=== PATIENT | male | born 1970 | race African-American/Black ===

== ENCOUNTER 2021-01-23 04:30 | Emergency (ER) | payer SELFPAY ==
[2021-01-23] MEDS ORDERED: Boostrix 0.5 ML (Tdap) VIAL ONE (04:45)
[2021-01-23] MEDS ORDERED: Lidocaine 1% PF 5 ML VIAL ONE (04:52)
== END 2021-01-23 05:20 | disposition home or self-care (01) ==
LOC: ERS 04:30
DX: S01.111A Laceration without foreign body of right eyelid and periocular area, initial encounter (principal); E11.9 Type 2 diabetes mellitus without complications; W06.XXXA Fall from bed, initial encounter
CPT/HCPCS: 12011; 36416; 90471; 90715

== ENCOUNTER 2023-04-16 03:25 | Inpatient (IN) | payer OTHER ==
[2023-04-16 04:06] LABS: #Eosinphils 0.1 thou/uL (0.0-0.7); #Monocytes 0.9 thou/uL (0.11-0.59); #Neutrophils 9.3 thou/uL (1.40-6.50); %Basophils 0.3 % (0.0-1.0); %Eosinophils 0.9 % (0.0-10.0); %Lymphocytes 7.9 % (21.0-51.0); %Monocytes 7.6 % (0.0-10.0); Hematocrit 37.2 % (42.0-52.0); Hemoglobin 12.7 g/dL (14.0-18.0); Mean Corpuscular HGB CONC 34.1 g/dL (32.0-36.0); Mean Corpuscular Hemoglobin 31.4 pg (27.0-31.0); Mean Corpuscular Volume 92.1 fl (78.0-98.0); Mean Platelet Volume 12.6 fL (7.4-10.4); Platelet Count 155 10x3/uL (130-400); RBC Distribution Width 12.8 % (11.5-14.5); Red Blood Cell (RBC) Count 4.04 mill/uL (4.70-6.10); White Blood Cell (WBC) Count 11.2 10x3/uL (4.8-10.8)
[2023-04-16] MEDS ORDERED: cefTRIAXone (ROCEPHIN) 1 GM VIAL ONE (04:22)
[2023-04-16 04:38] LABS: SARS-CoV-2 NAA Rapid Test Not Detected (NotDetected)
[2023-04-16 05:21] LABS: Anion Gap 13 mmol/L (10-20); BUN (Urea Nitrogen) 17 mg/dL (8.4-25.7); Calc. Creatinine Clearance 0 mL/min (70-130); Carbon Dioxide 23 mmol/L (22-29); Chloride 103 mmol/L (98-107); Estimated GFR 62; Potassium 4.2 mmol/L (3.5-5.1); Sodium 135 mmol/L (136-145)
[2023-04-16 05:22] LABS: ALT (SGPT) 20 U/L (8-55); AST (SGOT) 27 U/L (5-34); Albumin 3.7 g/dL (3.5-5.0); Alkaline Phosphatase 57 U/L (40-110); Bilirubin, Total 0.5 mg/dL (0.2-1.2); Globulin 3.8 g/dL (2.4-3.5); Glucose 189 mg/dL (70-105); Protein, Total 7.5 g/dL (6.0-8.3)
[2023-04-16] MEDS ORDERED: Vancomycin 1.5 GRAM/300 ML BAG 1.5 GM in Premix Bag 1 BAG IVPB SCH (06:15)
[2023-04-16 06:47] LABS: Bacteria/HPF None Seen HPF (None Seen); Bilirubin Negative (Negative); Blood, Urine Negative (Negative); CAUTI Indications for Culture Fever or rigors; Clarity Clear (Clear); Glucose, Urine (Dipstick) 100 mg/dL (Negative); Ketone, Urine Trace mg/dL (Negative); Leukocyte Negative Leu/uL (Negative); Nitrite Negative (Negative); Protein, Urine (Dipstick) Negative (Neg-Trace); RBC/HPF 0-3 HPF (0-3); Specific Gravity, Urine 1.015 (1.002-1.036); Sperm/HPF 3+ HPF (None Seen); Squamous Epithelial None Seen HPF (0-3); Urobilinogen Normal mg/dL (Less than 2); WBC/HPF 0-3 HPF (0-3); pH, Urine 5.5 (5.0-9.0)
[2023-04-16 06:48] LABS: Urine Culture Reflex No No
[2023-04-16 09:05] VITALS: BMI 23.1
[2023-04-16] MEDS ORDERED: Dextrose 5% in Water 1,000 ML IV PRN (09:30)
[2023-04-16] MEDS ORDERED: Sodium Chloride 0.9% 1,000 ML IV SCH (09:30)
[2023-04-16] MEDS ORDERED: Acetaminophen 650 MG Suppository PR PRN (09:30)
[2023-04-16] MEDS ORDERED: Acetaminophen 325 MG TAB PO PRN (09:30)
[2023-04-16] MEDS ORDERED: Ondansetron PF 4 MG/2 ML Vial IVP PRN (09:30)
[2023-04-16] MEDS ORDERED: HumaLOG 300 UNITS/3 ML VIAL SC PRN (09:30)
[2023-04-16] MEDS ORDERED: Electrolyte Replacement Protocol 1 EACH FS SCH (09:30)
[2023-04-16] MEDS ORDERED: Dextrose 50% Abboject 50 ML SYRINGE SLOW IVP PRN (09:30)
[2023-04-16] MEDS ORDERED: Glucagon 1 MG/ML KIT IM PRN (09:30)
[2023-04-16] MEDS ORDERED: Ondansetron ODT 4 MG TAB PO PRN (09:30)
[2023-04-16] MEDS ORDERED: HYDROcodone/Acetaminophen 5/325 mg Tablet PO PRN (09:30)
[2023-04-16] MEDS ORDERED: VANCOMYCIN IVPB PRN (09:33)
[2023-04-16] MEDS ORDERED: Electrolyte Replacement Protocol FS PRN (10:00)
[2023-04-16 10:42] LABS: Hemoglobin A1c 8.7 % (4.0-6.0)
[2023-04-16 10:57] LABS: CRP (Inflammatory) Less than 0.50 mg/dL (= or < 0.5); Uric Acid 5.5 mg/dL (3.5-7.2)
[2023-04-16] MEDS: HumaLOG 300 UNITS/3 ML VIAL SC PRN (13:43)
[2023-04-16] MEDS ORDERED: Vancomycin 1 GM in Premix Bag 1 BAG IVPB SCH (21:00)
[2023-04-17] MEDS ORDERED: cefTRIAXone\\ROCEPHIN 1 GM in Sodium Chloride 0.9% 100 ML IVPB SCH (05:00)
[2023-04-17 05:33] LABS: #Eosinphils 0.5 thou/uL (0.0-0.7); #Monocytes 0.8 thou/uL (0.11-0.59); #Neutrophils 5.6 thou/uL (1.40-6.50); %Basophils 0.4 % (0.0-1.0); %Eosinophils 5.3 % (0.0-10.0); %Lymphocytes 19.4 % (21.0-51.0); %Monocytes 8.9 % (0.0-10.0); %Neutrophils 65.8 % (42.0-75.0); Hematocrit 34.8 % (42.0-52.0); Hemoglobin 11.9 g/dL (14.0-18.0); Mean Corpuscular HGB CONC 34.2 g/dL (32.0-36.0); Mean Corpuscular Hemoglobin 31.5 pg (27.0-31.0); Mean Corpuscular Volume 92.1 fl (78.0-98.0); Mean Platelet Volume 11.9 fL (7.4-10.4); Platelet Count 135 10x3/uL (130-400); RBC Distribution Width 12.9 % (11.5-14.5); Red Blood Cell (RBC) Count 3.78 mill/uL (4.70-6.10); White Blood Cell (WBC) Count 8.5 10x3/uL (4.8-10.8)
[2023-04-17 05:58] LABS: Anion Gap 12 mmol/L (10-20); BUN (Urea Nitrogen) 11 mg/dL (8.4-25.7); Calc. Creatinine Clearance 100 mL/min (70-130); Calcium 8.5 mg/dL (7.8-10.44); Carbon Dioxide 24 mmol/L (22-29); Chloride 106 mmol/L (98-107); Estimated GFR 83; Glucose 195 mg/dL (70-105); Potassium 3.8 mmol/L (3.5-5.1); Sodium 138 mmol/L (136-145)
[2023-04-17 07:45] LABS: Legionella Urinary Ag Negative (Negative)
[2023-04-17] MEDS ORDERED: Lisinopril 2.5 MG TAB PO SCH (09:00)
[2023-04-17] MEDS: Atorvastatin Calcium 10 MG TAB PO SCH (09:07)
[2023-04-17] MEDS: HumaLOG 300 UNITS/3 ML VIAL SC PRN (13:04)
[2023-04-18] MEDS ORDERED: fentaNYL PF 100 MCG/2 ML SYRINGE ONE ×2 (06:41→07:29)
[2023-04-18] MEDS ORDERED: Ondansetron PF 4 MG/2 ML Vial ONE (06:42)
[2023-04-18] MEDS ORDERED: diphenhydrAMINE 50 MG/ML VIAL ONE (06:42)
[2023-04-18] MEDS ORDERED: Ketorolac Tromethamine 30 MG/ML VIAL ONE (06:42)
[2023-04-18] MEDS ORDERED: ePHEDrine Sulfate 50 MG/10 ML VIAL ONE (06:42)
[2023-04-18] MEDS ORDERED: Lidocaine 1% PF 5 ML VIAL ONE (06:42)
[2023-04-18] MEDS ORDERED: PROPOFOL 200 MG/20 ML VIAL ONE (06:42)
[2023-04-18] MEDS ORDERED: Sodium Chloride 0.9% 100 ML ONE (07:17)
[2023-04-18] MEDS ORDERED: CEFAZOLIN 2 GM VIAL ONE (07:17)
[2023-04-18] MEDS ORDERED: Insulin Regular 300 UNITS/3 ML VIAL ONE (07:37)
[2023-04-18] MEDS ORDERED: Bupivacaine PF 0.5% 30 ML VIAL ONE (07:41)
[2023-04-18] MEDS ORDERED: traMADol HCl 50 MG TAB PO PRN (08:52)
[2023-04-18] MEDS ORDERED: Lisinopril 5 MG TAB PO SCH (09:00)
[2023-04-18] MEDS: Atorvastatin Calcium 10 MG TAB PO SCH (09:36)
[2023-04-18] MEDS: VANCOMYCIN 1.25 GM/250 ML BAG 1.25 GM in Premix Bag 1 BAG IVPB SCH (18:35)
[2023-04-19] MEDS: VANCOMYCIN 1.25 GM/250 ML BAG 1.25 GM in Premix Bag 1 BAG IVPB SCH ×2 (06:06→18:26)
[2023-04-19 09:32] LABS: Hematocrit 36.6 % (42.0-52.0); Hemoglobin 12.1 g/dL (14.0-18.0); Mean Corpuscular HGB CONC 33.1 g/dL (32.0-36.0); Mean Corpuscular Hemoglobin 30.8 pg (27.0-31.0); Mean Corpuscular Volume 93.1 fl (78.0-98.0); Mean Platelet Volume 11.9 fL (7.4-10.4); Platelet Count 159 10x3/uL (130-400); Red Blood Cell (RBC) Count 3.93 mill/uL (4.70-6.10)
[2023-04-19 09:58] LABS: Anion Gap 10 mmol/L (10-20); BUN (Urea Nitrogen) 10 mg/dL (8.4-25.7); Calc. Creatinine Clearance 89 mL/min (70-130); Calcium 8.8 mg/dL (7.8-10.44); Carbon Dioxide 28 mmol/L (22-29); Chloride 105 mmol/L (98-107); Estimated GFR 72; Glucose 204 mg/dL (70-105); Potassium 3.9 mmol/L (3.5-5.1); Sodium 139 mmol/L (136-145)
[2023-04-19] MEDS: Atorvastatin Calcium 10 MG TAB PO SCH (10:22)
[2023-04-19] MEDS: Lisinopril 10 MG TAB PO SCH (10:22)
[2023-04-19] MEDS: HumaLOG 300 UNITS/3 ML VIAL SC PRN (18:22)
[2023-04-19] MEDS: Sulfameth/Trimethoprim DS 800-160mg TAB PO SCH (20:54)
[2023-04-20] MEDS: HumaLOG 300 UNITS/3 ML VIAL SC PRN (06:34)
[2023-04-20] MEDS: Lisinopril 10 MG TAB PO SCH (08:58)
[2023-04-20] MEDS: Sulfameth/Trimethoprim DS 800-160mg TAB PO SCH (08:58)
[2023-04-20] MEDS: Atorvastatin Calcium 10 MG TAB PO SCH (08:58)
[2023-04-20 12:28] VITALS: BP 142/92; TEMP 98
== END 2023-04-20 13:38 | disposition home or self-care (01) | DRG 617 ==
LOC: ERS 03:25 → SUATTDRO 03:25 → SJJU 06:42
PROVIDERS: ADMIT Student in an Organized Health Care Education/Training Program; ATTEND Internal Medicine
PROC: 0Y6U0Z2 Detachment at Left 3rd Toe, Mid, Open Approach (ICD-10-PCS; principal; 2023-04-18)
PROC: 3E033XZ Introduction of Vasopressor into Peripheral Vein, Percutaneous Approach (ICD-10-PCS; 2023-04-18)
DX: E11.69 Type 2 diabetes mellitus with other specified complication (principal); M86.8X7 Other osteomyelitis, ankle and foot; N17.9 Acute kidney failure, unspecified; F10.90 Alcohol use, unspecified, uncomplicated; E11.649 Type 2 diabetes mellitus with hypoglycemia without coma; F17.210 Nicotine dependence, cigarettes, uncomplicated; Z20.822 Contact with and (suspected) exposure to COVID-19; Z71.6 Tobacco abuse counseling; Z79.84 Long term (current) use of oral hypoglycemic drugs; Z79.899 Other long term (current) drug therapy; Z89.412 Acquired absence of left great toe; Z89.411 Acquired absence of right great toe; Z89.421 Acquired absence of other right toe(s); Z83.3 Family history of diabetes mellitus; Z80.1 Family history of malignant neoplasm of trachea, bronchus and lung
CPT/HCPCS: 36415; 36416; 71045; 80048; 80053; 81001; 82565; 83036; 83605; 84550; 85025; 85027; 86140; 87040; 87899; 88305; 88311; 93005; 94760; 96361; 96365; 96367; 97139; J0696; J1200; J1650; J1815; J1885; J2405; J2704; J3370; J3490; J7050; S0020